=== PATIENT | male | born 1985 ===

== ENCOUNTER 2016-12-29 08:12 | Observation (INO) | payer OTHER, MEDICAID ==
--- NOTE | 2016-12-29 08:51 | EDPHY ---
H & P Stated Complaint: chronic bilat axillary infection HPI/ROS: CHIEF COMPLAINT: "armpits infected" HISTORY OF PRESENT ILLNESS: Patient complains of bilateral arm pit infections and pain. This is been ongoing for 1-2 weeks. Worsening over the past week. [id number]-kv-[id number] 1st. Now severe. Painful movement of any kind. No fever but he did feel warm. Some drainage from both sites. It is very pruritic on the brachium and mildly pruritic in the actual axilla. Patient has history of this and was admitted to this facility in August. Diagnosed with MSSA and yeast without any fungal involvement. Was treated the hospital for 2 days and discharged home on dicloxacillin topical nystatin. He did well for a significant period of time. Over the past 2 weeks it has returned. He attempted to due to the topical treatment, but says that he is living in a homeless fci and has had difficulty with wound care. He was seen at [facility] on . Prescribed dicloxacillin, nystatin. He has been taking this as prescribed and the symptoms have actually worsened. No other associated complaints or modifying factors. Patient is transgender and identifies as male. REVIEW OF SYSTEMS: Ten systems reviewed and are negative unless otherwise noted in the HPI PCP: [facility] SPECIALISTS: Dr. Reyez PAST MEDICAL HISTORY: Schizoaffective disorder, MSSA cellulitis PAST SURGICAL HISTORY: None SOCIAL HISTORY: Smoker. No alcohol. No street drugs. Currently homeless. FAMILY HISTORY: Noncontributory EXAMINATION General Appearance: Alert, no distress Head: normocephalic, atraumatic Eyes: Pupils equal and round, no conjunctival pallor or injection ENT, Mouth: Mucous membranes moist Neck: Normal inspection, supple, non-tender Respiratory: Lungs are clear to auscultation Axilla: Bilateral cellulitis with some excoriation and raw tissue. There is no purulence. This is extensively covering the entire axilla bilaterally. There is some involvement of the right brachium anteriorly. There does appear to be a candidal infection of the right brachium. No drainable abscess. Some induration. There is also chronic scarring of the axillary skin Cardiovascular: Regular rate and rhythm. No murmur Gastrointestinal: Abdomen is soft and nontender Back: non-tender, no bony abnormalities Neurological: A&O, nonfocal, normal gait Skin: Warm and dry, no rash. Extensive skin changes as noted above in axilla section Extremities: Nontender, no pedal edema Psychiatric: Mood and affect normal DIFFERENTIAL DIAGNOSES: Including but not limited to cellulitis, chronic cellulitis, recurrent cellulitis, cellulitis refractory to outpatient therapy, candidal infection, contact dermatitis, hidradenitis suppurative a MDM: 8:55 a.m. Extensive cellulitis to bilateral axilla with some desquamation of tissue. There is a appearance of cellulitis as well as a candidal appearance. This is consistent with patient's previous diagnosis in August. At this point he is failing outpatient therapy of dicloxacillin topical nystatin for the 72 hours. I will contact hospitalist for admission and consult Infectious Disease. 9:04 a.m. Case discussed with infectious disease physician Dr. Nino. She is aware of the patient's care as she provided care in August. She is requesting Ancef IV 1 g Q 8. I have ordered this. She will provide consultation and see the patient I will contact hospitalist for admission 9:07 a.m. Case discussed with hospitalist (Amparo ALEGRIA), and the patient has been admitted to Dr. Jeter. He will be admitted in stable condition. And set that as being infused. Cultures obtained. Source: Patient, Old records - Personal History Current Tetanus Diphtheria and Acellular Pertussis (TDAP): Yes Tetanus Vaccine Date: 2010 - Medical/Surgical History Hx Asthma: No Hx Chronic Respiratory Disease: No Hx Diabetes: No Hx Cardiac Disease: No Hx Renal Disease: No Hx Cirrhosis: No Hx Alcoholism: No Hx HIV/AIDS: No Hx Splenectomy or Spleen Trauma: No Other PMH: depression, ptsd, schizo,anxiety. Gender dysphoria. TBI,bladder problems - Social History Smoking Status: Current every day smoker Constitutional: Initial Vital Signs Temperature (C) 98.2 F 12/29/16 08:18 Heart Rate 77 12/29/16 08:18 Respiratory Rate 18 12/29/16 08:18 Blood Pressure 137/83 H 12/29/16 08:18 O2 Sat (%) 92 12/29/16 08:18 O2 Delivery Mode Room Air Allergies/Adverse Reactions: trazodone Allergy (Severe, Verified 09/20/13 20:13) Other-Enter Comments iodine [Iodine] Allergy (Intermediate, Verified 09/20/13 20:13) Other-Enter Comments Home Medications: Medication Instructions Recorded Dicloxacillin Sodium [Dynapen 500 500 mg PO Q6H #28 cap 09/15/16 MG (*)] Nystatin Powder [Mycostatin Powder] 1 yana TP TID #1 btl 09/15/16 Unknown Psych Meds 12/29/16 Medical Decision Making - Data Points Laboratory Results: Laboratory Results 12/29/16 08:50 12/29/16 08:50 12/29/16 12/29/16 08:50 08:50 WBC 5.25 10^3/uL 10^3/uL (3.80-9.50) RBC 5.19 10^6/uL 10^6/uL (4.40-6.38) Hgb 16.9 g/dL g/dL (13.7-17.5) Hct 49.2 % % (40.0-51.0) MCV 94.8 fL fL (81.5-99.8) MCH 32.6 pg pg (27.9-34.1) MCHC 34.3 g/dL g/dL (32.4-36.7) RDW 12.3 % % (11.5-15.2) Plt Count 239 10^3/uL 10^3/uL (150-400) MPV 10.0 fL fL (8.7-11.7) Neut % (Auto) 65.1 % % (39.3-74.2) Lymph % (Auto) 20.4 % % (15.0-45.0) [place] % (Auto) 10.3 % % (4.5-13.0) Eos % (Auto) 3.0 % % (0.6-7.6) Baso % (Auto) 0.6 % % (0.3-1.7) Nucleat RBC Rel Count 0.0 % % (0.0-0.2) Absolute Neuts (auto) 3.42 10^3/uL 10^3/uL (1.70-6.50) Absolute Lymphs (auto) 1.07 10^3/uL 10^3/uL (1.00-3.00) Absolute Monos (auto) 0.54 10^3/uL 10^3/uL (0.30-0.80) Absolute Eos (auto) 0.16 10^3/uL 10^3/uL (0.03-0.40) Absolute Basos (auto) 0.03 10^3/uL 10^3/uL (0.02-0.10) Absolute Nucleated RBC 0.00 10^3/uL 10^3/uL (0-0.01) Immature Gran % 0.6 % % (0.0-1.1) Immature Gran # 0.03 10^3/uL 10^3/uL (0.00-0.10) Sodium 140 mEq/L mEq/L (134-144) Potassium 4.9 mEq/L mEq/L (3.5-5.2) Chloride 104 mEq/L mEq/L (97-110) Carbon Dioxide 24 mEq/l mEq/l (22-31) Anion Gap 12 mEq/L mEq/L (8-16) BUN 14 mg/dL mg/dL (7-23) Creatinine 1.0 mg/dL mg/dL (0.7-1.3) Estimated GFR > 60 Glucose 106 mg/dL H mg/dL (70-100) Calcium 9.9 mg/dL mg/dL (8.5-10.4) Medications Given: Discontinued Medications Cefazolin Sodium/Dextrose (Ancef 1 Gm (Premix)) 50 mls @ 200 mls/hr IV EDNOW ONE PRN Reason: Protocol Stop: 12/29/16 09:30 Last Admin: 12/29/16 09:48 Dose: 50 mls Sodium Chloride (Ns) 1,000 mls @ 0 mls/hr IV EDNOW ONE; Wide Open PRN Reason: Protocol Stop: 12/29/16 10:13 Last Admin: 12/29/16 09:00 Dose: 1,000 mls Departure - Departure Disposition: [facility] Inpatient Acute Clinical Impression: Cellulitis of axilla, left, Cellulitis of right axilla Condition: Good
[2016-12-29] MEDS ORDERED: ceFAZolin 1 GM in NS 100 ML IV ONE (09:03)
[2016-12-29 09:14] LABS: % IMMATURE GRANULYOCYTES 0.6 % (0.0-1.1); ABSOLUTE IMMATURE GRANULOCYTES 0.03 10^3/uL (0.00-0.10); ADD DIFF? NO; ADD MORPH? NO; ADD SCAN? NO; ATYPICAL LYMPHOCYTE FLAG 10 (0-99); FRAGMENT RBC FLAG 0 (0-99); HEMATOCRIT 49.2 % (40.0-51.0); HEMOGLOBIN 16.9 g/dL (13.7-17.5); LEFT SHIFT FLG 0 (0-99); LIPEMIA HEMOLYSIS FLAG 90 (0-99); MEAN CELL HEMOGLOBIN 32.6 pg (27.9-34.1); MEAN CELL HEMOGLOBIN CONCENTR. 34.3 g/dL (32.4-36.7); MEAN CELL VOLUME 94.8 fL (81.5-99.8); PLATELET CLUMPS FLAG 0 (0-99); PLATELET COUNT 239 10^3/uL (150-400); RED BLOOD CELL COUNT 5.19 10^6/uL (4.40-6.38); RED CELL DISTRIBUTION WIDTH 12.3 % (11.5-15.2)
[2016-12-29 09:19] LABS: ANION GAP 12 mEq/L (8-16); CALCIUM 9.9 mg/dL (8.5-10.4); CARBON DIOXIDE 24 mEq/l (22-31); CHLORIDE 104 mEq/L (97-110); GLOMERULAR FILTRATION RATE > 60; GLUCOSE 106 mg/dL (70-100); POTASSIUM 4.9 mEq/L (3.5-5.2); SODIUM 140 mEq/L (134-144)
[2016-12-29] MEDS ORDERED: NS 1,000 ML IV ONE (10:12)
[2016-12-29] MEDS ORDERED: ONDANSETRON 4 MG/2 ML VIAL IVP PRN (11:17)
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
[2016-12-29] MEDS ORDERED: FLUCONAZOLE 100 MG TAB PO SCH (11:30)
[2016-12-29] MEDS: NICOTINE 21 MG/24 HR PATCH TD SCH (11:37)
[2016-12-29 11:52] LABS: ALBUMIN 4.3 g/dL (3.5-5.0); BILIRUBIN,TOTAL 0.8 mg/dL (0.1-1.4); BILIRUBIN-CONJUGATED 0.4 mg/dL (0.0-0.5); BILIRUBIN-UNCONJUGATED 0.4 mg/dL (0.0-1.1); TOTAL PROTEIN 7.8 g/dL (6.3-8.2)
--- NOTE | 2016-12-29 12:33 | GCON ---
[f rep st] CONSULTATION INFECTIOUS DISEASE CONSULTATION DATE OF CONSULTATION: 12/29/2016 REFERRING PHYSICIAN: Norberto Bañuelos PA-C REASON FOR CONSULT: To assist in the management of this 31-year-old transgendered male with bilateral underarm cellulitis. HISTORY OF PRESENT ILLNESS: The patient is a 31-year-old transgender female to male, whose previous medical history is notable for the followin. Transgender female to male: The patient worked with a transgender clinic at [facility] and was on testosterone injections for many years. Last testosterone 5 years ago. 2. History of syphilis 1998. 3. History of oral HSV. 4. History of GERD. 5. Sensorineural hearing loss on the right. 6. History of borderline schizophrenia per the patient with PTSD and anxiety disorder. I met this patient for the 1st time back in August, when he presented with a similar problem. The patient at that time had been homeless for several days, was not showering, and using a fair amount of deodorant and body sprays. At that time, he had denuded skin with superficial ulcerations, but no significant cellulitis per se of his underarms. I cultured the area, which was negative for fungi, but the culture grew 4+ MSSA. I treated the patient at that time with oral dicloxacillin, and had the Wound Care nurse see him. He was ultimately discharged with 7 days of dicloxacillin. The patient tells me that he has been homeless the entire summer and admits to not showering very often. He is staying at the [facility] half-way. He continues to use large amounts of deodorant and tells me, "I can't not use deodorant." He states he is using potent deodorants like Old Spice. He states that approximately 2 weeks ago, he started to develop some skin sloughing under his armpits and with a foul smell. Again, the patient states that he is not showering at the half-way, because he feels that the half-way shower is very dirty. He presented to [facility] a few days ago, where the area was washed thoroughly and he was started on dicloxacillin orally, along with fluconazole, and he was given nystatin powder. Because of progression of skin sloughing, he presented to [facility] Room this morning. He was afebrile with no white blood cell count. He was started on Ancef, given that the underarm areas were notable for malodor and significant denuded epithelium. I am now asked to assist in his management. The patient states that he is using large amounts of deodorant, and not showering, as per the above. The area underneath both armpits is quite painful. REVIEW OF SYSTEMS: Notable for underarm pain. Otherwise negative. Ten systems were reviewed and all were negative. PREVIOUS MEDICAL HISTORY: As outlined above. MEDICATIONS: Ancef 1 g IV q.8 hours. The patient is also on fluconazole 200 mg p.o. daily, Zofran, NicoDerm. ALLERGIES: Trazodone and iodine. Reactions unknown. FAMILY HISTORY: The patient is adopted from the [facility]. SOCIAL HISTORY: The patient is transgender female to male and identifies as male. He has sex only with women. Last sexual activity many years ago. The patient tested negative for HIV, syphilis, and gonorrhea and chlamydia at his last visit in August and has not had any sexual activity of any sort since then, including oral sex. He was adopted at age 2-1/2 from the [facility] in brought to [facility] to [place]. His adoptive father is in his adopted mother lives in [place]. He does not have a good relationship with her. The patient received his high school diploma and has struggled with work and mental illness since then. He is an active smoker. No marijuana or illicit substances. PHYSICAL EXAM: VITAL SIGNS: T current 36.6, T-max 37.2, heart rate 95, blood pressure 113/86. GENERAL: A well nourished male lying in bed, in no apparent distress. HEENT: Atraumatic, normocephalic. Pupils equal, round, and reactive to light. Extraocular movements are intact. No conjunctival injection. No icterus or petechiae. Mucous membranes moist. No oral lesions noted. Dentition in fair repair. No sinus process tenderness or discharge from the nares. NECK: No thyromegaly or palpable thyroid nodules. No cervical or supraclavicular lymphadenopathy. CARDIOVASCULAR: S1, S2. No rubs , gallops, or murmurs. LUNGS: No increased respiratory effort. Clear to auscultation bilaterally with no rales, rhonchi, or wheeze. ABDOMEN: Soft. No organomegaly or tenderness to palpation. EXTREMITIES: No clubbing, cyanosis , or edema. No muscle or body tenderness or evidence of arthritis. SKIN: Multiple tattoos. The patient's underarms are notable for demarcated hyperpigmentation and significant denuded, sloughing epithelium with underlying exposed dermis that is beefy red. There is no surrounding cellulitis per se. The skin sloughing is malodorous. No other skin rashes noted. NEUROLOGIC: He is alert and oriented x3. LABORATORY DATA: Microbiologic data back in August: Underarms grew 4+ MSSA. Fungal culture was negative. Blood cultures x2 are pending. White blood cell count of 5, hematocrit 49, platelet count of 239. BUN and creatinine 14/1. HIV testing, syphilis testing, gonorrhea and chlamydia testing in August was negative. IMPRESSION: 31-year-old transgendered male with bilateral underarm skin sloughing/infection secondary to methicillin-susceptible Staphylococcus aureus without classic cellulitis, per se. Query underlying allergy to his deodorant, such as an aluminum allergy, that could be causing an irritant dermatitis and secondary bacterial infection from methicillin-susceptible Staphylococcus aureus, with which he is colonized. Doubt fungal contribution as culture was negative back in August and this does not appear consistent with May intertrigo or dermatophyte infection. Please see plan outlined below. PLAN: 1. Continue intravenous Ancef for now and likely transition to oral dicloxacillin after he shows improvement. 2. Wound care is his primary issue. Will have the Wound Care nurse see him tomorrow. 3. I have counseled the patient to stop using aluminum-containing deodorants. 4. Consider Staph aureus skin decolonization moving forward. 5. I do not feel that he necessitates repeat sexually transmitted infection testing given no new exposures. Thank you very much for consulting Infectious Diseases. We will continue to follow this patient with you. /[id number]/MODL MTDD
--- NOTE | 2016-12-29 13:56 | WOCRNPDOC ---
WOCRN Advanced Assessment Note - Skin Integrity Problem, Advanced Assess Bilateral Axilla Dressing Type: Open to Air Exudate Amount: Scant Exudate Color: Reddish/Yellow Exudate Characteristic(s): Sanguinopurulent (noted in L axilla), Serosanguinous Gillian Wound Tissue: Intact Gillian Wound Swelling: None Wound Bed Color: Red Wound Bed Constitution: De-roofed Serous Blister Wound Edges: Well Defined Site Odor: Slight Site Measurement - Head-to-Toe Length X Width X Depth (cm): R axilla: 10cmx6.5cmx0.1cm. L axilla: 10.5cmx7.1cmx0.1cm Skin Integrity Problem Comment: Raw, denuded skin noted in bilateral axillae, superficial epithelium sloughing off w/ an almost de-roofed blister-like appearance. Given the distinct margins of the wounds, and the identical apppearance on each side, this looks like it could be allergic contact dermatitis, possibly r/t antiperspirant. There does appear to be sangiunopurulent exudate in the L axilla, and there is some maldodor noted. Discussed hygeine routine w/ patient, who denies using antiperspirant in the last few days, but says he has used different kinds within the past few weeks. Because of his current homelessness, he reports using various brands, usally whatever is available and cheapest. He was amenable to showering and cleaning both axilla himself w/ warm water and a wash cloth. Then coding clerks supervisorTINO Mon applied Hydrogel to open areas, followed by a non-adherent contact layer and ABD. These wounds should resolve if we can identify the offending cause; per history, he was here back in August with the identical issue. Wound care will follow up with patient on Wednesday 01/03. Recommend simple, topical wound care to protect fragile, sloughing skin.
[2016-12-29] MEDS: ACETAMINOPHEN 325 MG TAB PO PRN (20:18)
[2016-12-30] MEDS: ACETAMINOPHEN 325 MG TAB PO PRN ×2 (03:23→15:58)
[2016-12-30 09:19] VITALS: BP 121/74; PULSE 73; RESP 12; TEMP 98.6; O2SAT 95
--- NOTE | 2016-12-30 10:27 | PCMIDPN ---
Assessment/Plan: Assessment: Patient with bilateral axillary wounds secondary likely to contact dermatitis. It is reasonable that there may be a secondary bacterial or fungal dermatitis on top of this. Per the patient things are going better. We will observe the wounds later today during his daily dressing changes. In the meantime will continue cefazolin. Suspect he will need to follow up at the [facility] Clinic for 1-2 weeks following discharge. Plan: 1. Continue IV cefazolin. 2. Wound care dressing changes later this afternoon. 3. Possible discharge on oral Keflex if wounds look stable to improved. 4. Likely follow up at Wound Clinic. 12/30/16 10:24 12/30/16 10:27 Subjective: Patient is resting comfortably in his bed. He denies any new complaints. He denies fevers or chills. Objective: Cefazolin # 1 Vital Signs Temp Pulse Resp BP Pulse Ox 37 C 73 12 121/74 H 95 12/30/16 08:00 12/30/16 08:00 12/30/16 08:00 12/30/16 08:00 12/30/16 08:00 12/29/16 12/30/16 12/31/16 05:59 05:59 05:59 Intake Total 1175 Balance 1175 - Physical Exam General Appearance: WD/WN, alert, no apparent distress, non-toxic Respiratory: lungs clear, normal breath sounds, No respiratory distress Cardiac/Chest: regular rate, rhythm, No tachycardia Skin: normal color, warm/dry, No rash Neuro/Psych: alert, normal mood/affect, oriented x 3 ICD10 Worksheet Patient Problems: Problems Problem Status Onset Cellulitis of axilla, left Acute Cellulitis of right axilla Acute Cellulitis Acute
[2016-12-30] MEDS: NICOTINE 21 MG/24 HR PATCH TD SCH (11:00)
--- NOTE | 2016-12-30 14:09 | ASMTCMCOM ---
CM Note CM Note Notes: Pt is being discharged today. Pt is requesting for a [facility] Pt reports that he plans on going there to get some more bus passes. Pt will be discharging independent without any needs. [facility]. CM available for changes. Date Signed: 12/30/2016 02:09 PM Electronically Signed By:TAMARA Desir
--- NOTE | 2016-12-30 14:09 | ASMTCMCOM ---
CM Note CM Note Notes: Chart reviewed. Met with patient to discuss discharge poc. He states he need to notify [facility] here in [place] that he is inpatient and will need a letter of that effect when he leaves to go [facility]k to the [facility]. He states he is current with [facility]. he expresses frustration with recurrent axilla infections. Provided with a list of aluminum free deoderants per MD recommendation. No current needs identified, should dc back to intermediate. CM available should needs arise. Date Signed: 12/30/2016 02:08 PM Electronically Signed By:Mallory Desir RN
[2016-12-30] MEDS ORDERED: lamoTRIgine 100 MG TAB PO SCH (21:00)
[2016-12-30] MEDS ORDERED: OLANZapine 10 MG TAB PO SCH (21:00)
--- NOTE | 2016-12-31 01:01 | GDS ---
[f rep st] DISCHARGE SUMMARY DISCHARGE DIAGNOSES: 1. Bilateral axillary wound secondary to contact dermatitis with possible secondary bacterial or fun gal infection. 2. Schizoaffective disorder. 3. Depression. 4. Transgendered male. CONSULTANTS: Dr. Adam Leger. HOSPITAL COURSE: Bilateral axillary wound: The patient was admitted to the hospital where he was st arted on cefazolin. He has been seen by Wound Care. On day of discharge, he has been seen by Dr. Arnaldo carpenter, who thought it was reasonable for him to be discharged on oral Keflex. The patient plans to fo llow up at wound care clinic. PHYSICAL EXAM: VITAL SIGNS: On day of discharge, blood pressure 121/74, pulse 73, respiratory rate 12, O2 saturation 95% on room air, temperature afebrile. GENERAL: No acute distress. PERTINENT LABS AND STUDIES: During this hospital stay, axillary swabs have grown Staph aureus. DISCHARGE MEDICATIONS: Please refer to discharge medication reconciliation in [facility]. Below is a preliminary list. Home medications that were stopped: Bactrim. New medications on hospital discharge: Keflex 500 mg p.o. q.6 hours x7 days. DISCHARGE INSTRUCTIONS: The patient will be discharged from the hospital where he plans to follow up at the wound care clinic. He needs daily dressing changes. He should avoid any deodorants or other potential irritants to his axilla. /[id number]/MODL
[2016-12-31] MEDS ORDERED: NYSTATIN POWDER 15 GM BTL TP SCH (09:00)
--- NOTE | 2016-12-31 16:58 | ASDISCHSUM ---
Discharge Information Plan Status:Homeless/Halfway Medically Cleared to Leave:12/30/2016 Discharge Date:12/30/2016 04:14 PM CM D/C Disposition: ADT D/C Disposition:Home, Routine, Self-Care Projected Discharge Date:12/30/2016 12:00 AM Transportation at D/C: Discharge Delay Reason: Follow-Up Date:12/30/2016 12:00 AM Discharge Slot: Final Diagnosis: Placement Information Patient Contact Information Contact Name:ANNIE Relationship:Other Address: Home Phone: Work Phone: City: Alternate Phone: State/Zip Code: Email: Financial Information Financial Class: Primary Plan Desc:MEDICARE OUTPATIENT Primary Plan Number:[id number] Secondary Plan Desc:MEDICA[employer] [place] Secondary Plan Number:[id number] Assessment Information [facility] CM Progress Note CM Note CM Note Notes: Chart reviewed. Met with patient to discuss discharge poc. He states he need to notify [facility] here in [place] that he is inpatient and will need a letter of that effect when he leaves to [facility]. He states he is current with [facility]. he expresses frustration with recurrent axilla infections. Provided with a list of aluminum free deoderants per MD recommendation. No current needs identified, should dc [facility]. CM available should needs arise. Date Signed: 12/30/2016 02:08 PM Electronically Signed By:Mallory Desir RN [facility] CM Progress Note CM Note CM Note Notes: Pt is being discharged today. Pt is requesting for a bus pass [facility]. Pt reports that he plans on going there to get some more bus passes. Pt will be discharging independent without any needs. Pt will be returning [facility]. CM available for changes. Date Signed: 12/30/2016 02:09 PM Electronically Signed By:TAMARA Desir Intervention Information Intervention Type:*IM-Signed Date of Service:12/30/2016 11:29 AM Patient Type:Observation Staff Member:Mica Ashby Hours: Discipline: Severity: Comment:
== END 2016-12-30 16:14 | disposition home or self-care (01) ==
LOC: EDUNIT# → INTOOBSV 09:06 → F3E 10:11
PROVIDERS: ADMIT Family Medicine; ATTEND Family Medicine
DX: L23.89 Allergic contact dermatitis due to other agents (principal); L98.499 Non-pressure chronic ulcer of skin of other sites with unspecified severity; F25.1 Schizoaffective disorder, depressive type; Z59.0 Homelessness; Z86.19 Personal history of other infectious and parasitic diseases; A49.01 Methicillin susceptible Staphylococcus aureus infection, unspecified site
CPT/HCPCS: G0378; J0690; 96374